=== PATIENT | male | born 1985 | race Caucasian/White ===

== ENCOUNTER 2018-03-27 21:33 | Emergency (ER) | payer SELFPAY ==
[~2018-03-27] VITALS: Ht 185.4 cm; Wt 81.6 kg
[2018-03-27] MEDS ORDERED: ONDANSETRON 4 MG/2 ML (SDV) Z0FRAN ONE (21:39)
[2018-03-27 21:54] LABS: HEMOGLOBIN 14.1 G/DL (13.3-17.7); MEAN PLATELET VOLUME 8.8 FL (7.4-10.4); RED BLOOD COUNT 4.51 10^6/uL (4.35-5.85); RED CELL DISTRIBUTION WIDTH 13.2 % (10.0-14.5); WHITE BLOOD COUNT 7.3 10^3/uL (4.3-11.0)
[2018-03-27] MEDS ORDERED: TETANUS,DIPTH,PERTUSS P/F (BOOSTRIX) 0.5 ML VIAL IM ONE (22:00)
[2018-03-27] MEDS ORDERED: ONDANSETRON 4 MG/2 ML (SDV) Z0FRAN IVP ONE (22:00)
[2018-03-27 22:11] LABS: ALANINE AMINOTRANSFERASE 61 U/L (0-55); ALBUMIN 3.7 GM/DL (3.2-4.5); ALKALINE PHOSPHATASE 60 U/L (40-136); BILIRUBIN,DIRECT 0.1 MG/DL (0.0-0.3); BILIRUBIN,INDIRECT 0.2 MG/DL; BILIRUBIN,TOTAL 0.3 MG/DL (0.1-1.0); BUN/CREATININE RATIO 23; CALCIUM 8.3 MG/DL (8.5-10.1); CARBON DIOXIDE 27 MMOL/L (21-32); CHLORIDE 108 MMOL/L (98-107); CREATINE KINASE 81 U/L (30-200); CREATININE SERUM 0.84 MG/DL (0.60-1.30); GFR ESTIMATED > 60; GLUCOSE 92 MG/DL (70-105); MAGNESIUM 2.3 MG/DL (1.8-2.4); PHOSPHORUS 3.2 MG/DL (2.3-4.7); POTASSIUM 3.6 MMOL/L (3.6-5.0); SODIUM 143 MMOL/L (135-145); TOTAL PROTEIN 5.9 GM/DL (6.4-8.2)
[2018-03-27] MEDS ORDERED: AMPICILLIN/SULBACTAM 3 GM VIAL (UNASYN) ONE (22:48)
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
[2018-03-27 22:57] LABS: FIBRIN DEGRADATION PRODUCTS 1.05 UG/ML (0.00-0.49); INR 1.1 (0.8-1.4); PROTHROMBIN TIME PATIENT 13.9 SEC (12.2-14.7)
[2018-03-27] MEDS ORDERED: D5W IV ONE (23:00)
[2018-03-27] MEDS ORDERED: LEVETIRACETAM IV ONE (23:00)
[2018-03-27] MEDS ORDERED: AMPICILLIN/SULBACTAM INJECTION 3 GM in NS (IVPB) 100 ML IV ONE (23:00)
[2018-03-27] MEDS ORDERED: NS (IVPB) 100 ML ONE (23:12)
[2018-03-27 23:57] LABS: BILIRUBIN,URINE NEGATIVE (NEGATIVE); CLARITY,URINE CLEAR; COLOR,URINE YELLOW; GLUCOSE, URINE (UA) NEGATIVE (NEGATIVE); KETONES,URINE NEGATIVE (NEGATIVE); LEUKOCYTE ESTERASE ,URINE 1+ (NEGATIVE); NITRITE,URINE NEGATIVE (NEGATIVE); PH,URINE 6 (5-9); PROTEIN,URINE 1+ (NEGATIVE); UROBILINOGEN,URINE 1 MG/DL (NORMAL)
[2018-03-28 00:07] LABS: BACTERIA,URINE NEGATIVE /HPF; WBC,URINE RARE /HPF
[2018-03-28 00:11] LABS: AMPHETAMINE SCREEN, URINE POSITIVE (NEGATIVE); BARBITURATE SCREEN URINE NEGATIVE (NEGATIVE); BENZODIAZEPINES SCREEN URINE NEGATIVE (NEGATIVE); CANNABINOID SCREEN, URINE NEGATIVE (NEGATIVE); COCAINE SCREEN URINE NEGATIVE (NEGATIVE); METHADONE STAT NEGATIVE (NEGATIVE); METHAMPHETAMINE SCREEN URINE S NEGATIVE (NEGATIVE); OPIATE SCREEN URINE NEGATIVE (NEGATIVE); OXYCODONE STAT NEGATIVE (NEGATIVE); PROPOXYPHENE STAT NEGATIVE (NEGATIVE); TRICYCLIC ANTIDEPRESSANTS SCRE NEGATIVE (NEGATIVE)
[2018-03-28 00:30] VITALS: BP 146/99
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
== END 2018-03-28 00:36 | disposition short-term general hospital (02) ==
LOC: EDUNIT# 21:33 → ER 21:34
DX: S06.4X1A Epidural hemorrhage with loss of consciousness of 30 minutes or less, initial encounter (principal); S02.32XA Fracture of orbital floor, left side, initial encounter for closed fracture; S02.2XXA Fracture of nasal bones, initial encounter for closed fracture; R40.2142 Coma scale, eyes open, spontaneous, at arrival to emergency department; R40.2252 Coma scale, best verbal response, oriented, at arrival to emergency department; R40.2362 Coma scale, best motor response, obeys commands, at arrival to emergency department; F17.210 Nicotine dependence, cigarettes, uncomplicated; Z23 Encounter for immunization; V03.90XA Pedestrian on foot injured in collision with car, pick-up truck or van, unspecified whether traffic or nontraffic accident, initial encounter
CPT/HCPCS: 36415; 70450; 70486; 71045; 71250; 72125; 72128; 72131; 72170; 73130; 74176; 80048; 80076; 80306; 80320; 81000; 82550; 83605; 83735; 84100; 84484; 85027; 85379; 85384; 85610; 85730; 86850; 86900; 86901; 86920; 90471; 90715; 93005; 93041; 96365; 96367; 96375

== ENCOUNTER 2022-08-20 14:12 | Emergency (ER) | payer SELFPAY ==
[~2022-08-20] VITALS: Ht 187.9 cm; Wt 95.3 kg
[2022-08-20 14:17] VITALS: BP 139/96
--- NOTE | 2022-08-20 14:41 | ED Lower Extremity ---
General Chief Complaint: Lower Extremity Stated Complaint: RIGHT ANKLE INJURY Nursing Triage Note: PT TO RM 6 BY WC WITH COMPLAINT OF RIGHT ANKLE INJURY. STATES WAS CUTTING A TREE AND THE BRANCH ROLLED BACK IN TO HIS ANKLE. History of Present Illness Date Seen by Provider: Aug 20, 2022 Time Seen by Provider: 14:15 Initial Comments 36-year-old male reports that he was cutting down a tree when it rolled and landed on his right ankle and foot. He had immediate onset of pain and inability to bear weight on it. He has supportive boots on that he has not removed. He reports to having numbness and tingling in his heel and foot. He denies any previous injuries to his right ankle or foot. No other injuries experienced during the event. There is no abrasions or lacerations. He reports using IV Meth and having 1 beer a few hours before the event occur red. He reports Hep C +, no local PCP. Onset: just prior to arrival Pain/Injury Location: right foot, right ankle, right heel Method of Injury: direct blow, twisted Allergies and Home Medications Allergies Coded Allergies: No Allergy Information Available (Unverified , 03/27/18) Patient Home Medication List Home Medication List Reviewed: Yes Review of Systems Constitutional: no symptoms reported, see HPI Musculoskeletal: see HPI, joint pain (Right ankle and foot.), joint swelling (Right ankle) All Other Systems Reviewed Negative Unless Noted: Yes Past Fefrzzt-Osomxn-Yksnnq Hx Patient Social History Tobacco Use?: Yes Tobacco type used: Cigarettes Smoking Status: Current Everyday Smoker Use of E-Cig and/or Vaping dev: No Substance use?: Yes Substance type: Methamphetamine, Marijuana Alcohol Use?: Yes Alcohol Frequency: Couple times a week Pt feels they are or have been: No Immunizations Up To Date Tetanus Booster (TDap): Unknown Seasonal Allergies Seasonal Allergies: No Past Medical History Surgeries: Yes Orthopedic (Right ACL) Respiratory: No Cardiac: No Neurological: No Genitourinary: No Gastrointestinal: No Musculoskeletal: No Endocrine: No HEENT: No Cancer: No Psychosocial: No Integumentary: No Blood Disorders: No Family Medical History Reviewed and Corrections made Physical Exam Vital Signs Vital Signs - First Documented 08/20/22 14:17 Temp 36.8 Pulse 97 Resp 16 B/P (MAP) 139/96 (110) Pulse Ox 97 O2 Delivery Room Air Capillary Refill : Height, Weight, BMI Height: 6'1.00" Weight: 180lbs. oz. 81.263427hj; 26.00 BMI Method:Stated General Appearance: WD/WN, no apparent distress Cardiovascular: normal peripheral pulses, regular rate, rhythm Respiratory: chest non-tender, lungs clear, normal breath sounds Ankles: right ankle normal inspection, right ankle bone tenderness, right ankle limited range of motion (Secondary to pain), right ankle pain, right ankle soft tissue tenderness (Generalized), right ankle swelling, right ankle other (Pedal pulses 2+, cap refill brisk; Resisted Flex/Ext ankle/toes V/V. ) Feet: right foot normal inspection, right foot normal range of motion, right foot no evidence of injury, right foot pain Neurologic/Tendon: normal sensation, normal motor functions, normal tendon func tions Neurologic/Psychiatric: no motor/sensory deficits, alert, normal mood/affect, oriented x 3 Skin: normal color, warm/dry Progress/Results/Core Measures Results/Orders My Orders Orders - SCOTT ENGLISH Foot, Right, 3 View (08/20/22 14:26) Ankle, Right, 3 Views (08/20/22 14:26) Ibuprofen Tablet (Motrin Tablet) (08/20/22 14:58) Vital Signs/I&O 08/20/22 14:17 Temp 36.8 Pulse 97 Resp 16 B/P (MAP) 139/96 (110) Pulse Ox 97 O2 Delivery Room Air Blood Pressure Mean: 110 Progress Progress Note : Time: 14:15 Progress Note Patient seen and evaluated, denied need for pain medication at this time. Ice pack to right ankle and foot. Will obtain x-rays and reevaluate Diagnostic Imaging Diagonstic Imaging: Xray Plain Films/CT/US/NM/MRI: other (foot) Comments NAME: SHAHNAZOCTAVIO LOPEZ REC#: [id number] PT STATUS: REG ER : 1985 PHYSICIAN: SCOTT ENGLISH ADMIT DATE: 08/20/22/ER Signed Date of Exam:08/20/22 FOOT, RIGHT, 3 VIEW Indication: Left foot injury with pain AP, oblique and lateral views of left foot are obtained. FINDINGS: No acute fracture or dislocation is identified. No abnormal lytic or sclerotic focus is seen, and there is no radiopaque foreign body. IMPRESSION: No acute abnormality. Dictated by: Dictated on workstation # [id number] Dict: 08/20/221452 Trans: 08/20/221452 [id number] Interpreted by: VIKTOR BARRIENTOS MD Electronically signed by: VIKTOR BARRIENTOS MD 08/20/221452 Reviewed: Reviewed by Me Diagonstic Imaging: Xray Plain Films/CT/US/NM/MRI: ankle Comments NAME: OCTAVIO CHRISTIE REC#: [id number] PT STATUS: REG ER : 1985 PHYSICIAN: SCOTT ENGLISH ADMIT DATE: 08/20/22/ER Draft Date of Exam:08/20/22 ANKLE, RIGHT, 3 VIEWS INDICATION: Left ankle injury with pain AP, oblique and lateral views of the left ankle are obtained. FINDINGS: No acute fracture or dislocation is identified. No abnormal lytic or sclerotic focus is seen, and there is no radiopaque foreign body. IMPRESSION: No acute abnormality. Dictated on workstation # [id number] Dict: 08/20/221451 Trans: 08/20/221452 [facility] [id number] Interpreted by: VIKTOR BARRIENTOS MD Electronically signed by: Departure Impression Primary Impression: Sprain and strain of ankle Disposition: 01 HOME, SELF-CARE Condition: Improved Departure-Patient Inst. Decision time for Depature: 14:50 Referrals: [facility] [place] NO,LOCAL PHYSICIAN (PCP) Primary Care Physician Patient Instructions: Ankle Sprain (DC) Add. Discharge Instructions: Establish care at [facility]. Consider treatment for Hep C. Ice and elevate right ankle and foot for 20 minutes every 2 hours. Sly wrap for the next 5 to 7 days then as needed. Alternate between Tylenol 650 mg and ibuprofen 600 mg every 4 hours for pain. Advance activity as tolerated. Avoid elevated surfaces until your ankle is improved. Follow-up for your ankle at [facility], you can schedule with the prior provider or use or walk-in care. Return to the emergency department for new, urgent healthcare needs. All discharge instructions reviewed with patient and/or family. Voiced understanding. SCOTT ENGLISH Aug 20, 2022 14:41
--- NOTE | 2022-08-20 14:54 | Diagnostic Imaging Report ---
INDICATION: Left ankle injury with pain AP, oblique and lateral views of the left ankle are obtained. FINDINGS: No acute fracture or dislocation is identified. No abnormal lytic or sclerotic focus is seen, and there is no radiopaque foreign body. IMPRESSION: No acute abnormality. Dictated by: Dictated on workstation # [id number]
--- NOTE | 2022-08-20 14:54 | Diagnostic Imaging Report ---
Indication: Left foot injury with pain AP, oblique and lateral views of left foot are obtained. FINDINGS: No acute fracture or dislocation is identified. No abnormal lytic or sclerotic focus is seen, and there is no radiopaque foreign body. IMPRESSION: No acute abnormality. Dictated by: Dictated on workstation # [id number]
[2022-08-20] MEDS ORDERED: IBUPROFEN 800 MG (MOTRIN) TAB PO STA (14:58)
== END 2022-08-20 15:05 | disposition home or self-care (01) ==
LOC: EDUNIT# 14:12 → ER 14:14
DX: S93.401A Sprain of unspecified ligament of right ankle, initial encounter (principal); S96.911A Strain of unspecified muscle and tendon at ankle and foot level, right foot, initial encounter; F17.210 Nicotine dependence, cigarettes, uncomplicated; X50.1XXA Overexertion from prolonged static or awkward postures, initial encounter; Y93.89 Activity, other specified
CPT/HCPCS: 73610; 73630